=== PATIENT | female | born 1995 | race Caucasian/White ===

== ENCOUNTER 2016-12-17 07:53 | Emergency (ER) | payer OTHER ==
[2016-12-17 08:11] VITALS: RESP 20; O2SAT 98
[2016-12-17 08:18] VITALS: BMI 23.6
--- NOTE | 2016-12-17 08:46 | ED PDOC ---
Arrival/HPI - General Chief Complaint: Flu-like Symptoms Time Seen by Provider: 12/17/16 08:13 Historian: Patient - History of Present Illness Narrative History of Present Illness (Text): 12/17/16 08:30 Matthew Willson is a 21 year old female, who presents to the emergency department complaining of a sore throat since three days ago. Patient reports of having rinorrhea, sputum, coughing, chills, and body aches. She notes taking Ibuprofen and cough drops which have some mild relief. Patient also states she did not get the flu shot this year. Patient denies headache, shortness of breath, chest pain, nausea, vomiting, diarrhea, dysuria, or other complaints. Time/Duration: < week (3 days) Symptom Onset: Gradual Symptom Course: Unchanged Quality: Aching Associated Symptoms (Text): 12/17/16 coughing, chills, rinorrhea, sputum, body aches, sore throat Past Medical History - Provider Review Nursing Documentation Reviewed: Yes - Infectious Disease Hx of Infectious Diseases: None - Reproductive Menopause: No - Cardiac Hx Cardiac Disorders: No - Pulmonary Hx Respiratory Disorders: No - Neurological Hx Neurological Disorder: No - HEENT Hx HEENT Disorder: No - Renal Hx Renal Disorder: No - Endocrine/Metabolic Hx Endocrine Disorders: No - Hematological/Oncological Hx Blood Disorders: No - Integumentary Hx Dermatological Disorder: No - Musculoskeletal/Rheumatological Hx Musculoskeletal Disorders: No - Gastrointestinal Hx Gastrointestinal Disorders: No - Genitourinary/Gynecological Hx Genitourinary Disorders: No - Psychiatric Hx Psychophysiologic Disorder: No Hx Substance Use: No - Anesthesia Hx Anesthesia: No Family/Social History - Physician Review Nursing Documentation Reviewed: Yes Family/Social History: Unknown Family HX Smoking Status: Never Smoked Hx Alcohol Use: No Hx Substance Use: No Allergies/Home Meds Allergies/Adverse Reactions: Allergies No Known Allergies Allergy (Unverified 12/17/16 08:36) Review of Systems - Review of Systems ENT: Sore Throat, Rhinorrhea. absent: TMJ Pain Respiratory: Cough, Sputum. absent: SOB Cardiovascular: absent: Chest Pain Gastrointestinal: absent: Abdominal Pain, Diarrhea, Nausea, Vomiting Genitourinary Female: absent: Dysuria Neurological: absent: Headache, Dizziness Endocrine: absent: Polydipsia Physical Exam - Physical Exam Narrative Physical Exam (Text): 12/17/16 Head: Atraumatic. Normocephalic. Eyes: PERRL. EOMI. Conjunctivae are not pale. ENT: (+) Mild pharyngeal erythema. Mucous membranes are moist and intact. No uvular deviation. Neck: Supple. Full ROM. No JVD. No lymphadenopathy. No meningeal signs. Cardiovascular: Regular rate. Regular rhythm. No murmurs, rubs, or gallops. Distal pulses are 2+ and symmetric. Pulmonary/Chest: No evidence of respiratory distress. Clear to auscultation bilaterally. No wheezing, rales or rhonchi. No accessory muscle usage. Abdominal: Soft and non-distended. There is no tenderness. No rebound, guarding, or rigidity. No organomegaly. Good bowel sounds. Back: No CVA tenderness. NO rash. Extremities: No edema. No cyanosis. No clubbing. Full range of motion in all extremities. No calf tenderness. Skin: Skin is warm and dry. No petechiae. No purpura. Neurological: Alert, awake, and oriented to person, place, time, and situation. Normal speech. Motor and sensory exam inatct. Psychiatric: Good eye contact. Normal interaction, affect, and behavior. 12/17/16 17:49 Vital Signs Reviewed: Yes Vital Signs Temp Pulse Resp BP Pulse Ox 12/17/16 10:23 98.2 F 70 20 102/53 L 98 12/17/16 08:10 99.4 F 87 20 114/65 98 Temperature: Afebrile Blood Pressure: Normal Pulse: Regular Respiratory Rate: Normal Appearance: Positive for: Well-Appearing, Non-Toxic, Comfortable Pain Distress: None Mental Status: Positive for: Alert and Oriented X 3 Medical Decision Making ED Course and Treatment: 12/17/16 Impression: 21 year old female with bodyaches, chills, cough. Differential Diagnosis included but are not limited to: Influenza vs. Pharyngitis vs. Bronchitis Plan: -- Labs -- Reassess and disposition Progress Notes: Patient has history of asthma although NO WHEEZING with serial exams. No rales, no rhonchi. NO stridor or respiratory distress. No prior intubations and no recent admissions. She is well appearing, nontoxic, with no pharyngeal erythema or exudates. No focal motor or sensory deficits. No meningeal signs. Patient in no respiratory distress, no hypoxia. Influenza negative, afebrile in ed. Will d/c with antibiotics, and will re-fill her albuterol rx as she states she ran out and is asking for refill, although no wheezing noted. No urinary symptoms, no flank pain. 12/17/16 18:07 - Lab Interpretations Lab Results: Lab Results 12/17/16 09:00: Influenza Typ A,B (EIA) Negative for flu a/b I have reviewed the lab results: Yes - Scribe Statement The provider has reviewed the documentation as recorded by the Jadene Anabel Byrnes Provider Scribe Attestation: All medical record entries made by the Scribe were at my direction and personally dictated by me. I have reviewed the chart and agree that the record accurately reflects my personal performance of the history, physical exam, medical decision making, and the department course for this patient. I have also personally directed, reviewed, and agree with the discharge instructions and disposition. Disposition/Present on Arrival - Present on Arrival Any Indicators Present on Arrival: No History of DVT/PE: No History of Uncontrolled Diabetes: No Urinary Catheter: No History of Decub. Ulcer: No History Surgical Site Infection Following: None - Disposition Have Diagnosis and Disposition been Completed?: Yes Diagnosis: Bronchitis, Pharyngitis Disposition: HOME/ ROUTINE Disposition Time: 10:00 Patient Plan: Discharge Condition: GOOD Discharge Instructions (ExitCare): Pharyngitis (ED), Acute Bronchitis (ED) Additional Instructions: For any fevers, any chest pain or shortness of breath, any abdominal pain, any back pain, any urinary symptoms, any rash, any numbness or weakness, any difficulty swallowing, any persistent or worsening of symptoms, get rechecked. Rest. Drink fluids. Follow-up with your primary care doctor in 1-2 days. Prescriptions: Albuterol HFA [Ventolin HFA 90 mcg/actuation (8 g)] 1 puff IH Q8 PRN #1 puff PRN Reason: Wheezing Azithromycin [Zithromax] 250 mg PO DAILY #6 tab Referrals: PCP,NO [Primary Care Provider] - Follow up with primary Forms: [employer] ([place]), SCHOOL NOTE, WORK NOTE
[2016-12-17 10:24] VITALS: BP 102/53; PULSE 70; TEMP 98.2
== END 2016-12-17 10:42 | disposition home or self-care (01) ==
LOC: ED 07:53
DX: J40 Bronchitis, not specified as acute or chronic (principal); J02.9 Acute pharyngitis, unspecified

== ENCOUNTER 2018-01-04 21:49 | Emergency (ER) | payer OTHER ==
[2018-01-04 21:50] VITALS: BMI 23.6
== END 2018-01-04 23:24 | disposition left against medical advice (07) ==
LOC: ED 21:49
DX: Z02.89 Encounter for other administrative examinations (principal); R53.1 Weakness